=== PATIENT | female | born 1990 | race Two or more races ===

== ENCOUNTER 2016-07-04 14:24 | Emergency (ER) | payer MEDICAID ==
[~2016-07-04] VITALS: Ht 160 cm; Wt 59.0 kg
[2016-07-04 16:25] VITALS: BP 102/65
== END 2016-07-04 17:32 | disposition home or self-care (01) ==
LOC: ER 15:12
DX: G89.18 Other acute postprocedural pain (principal); Z87.81 Personal history of (healed) traumatic fracture